=== PATIENT | male | born 1930 | race Caucasian/White ===

== ENCOUNTER 2021-04-17 09:06 | Outpatient (CLI) | payer MEDICARE, BC ==
[~2021-04-17] VITALS: Ht 172.7 cm; Wt 72.7 kg
[2021-04-17] VITALS (8 sets, daily range): BP systolic 89–153; BP diastolic 34–58
[2021-04-17] MEDS ORDERED: regadenoson 0.4mg/5ml syringe IV ONE ×2 (10:00→10:10)
[2021-04-17] MEDS ORDERED: nitroGLYCERIN 0.4mg SUBLingual tab SL PRN (10:00)
[2021-04-17] MEDS ORDERED: metoprolol tartrate 1mg/ml inj IV PRN (10:00)
[2021-04-17] MEDS ORDERED: aminophylline 250mg/10ml inj. IV PRN (10:00)
== END 2021-04-17 23:59 | disposition home or self-care (01) ==
LOC: RAD 09:06
PROVIDERS: ATTEND Internal Medicine Cardiovascular Disease
DX: R06.00 Dyspnea, unspecified (principal); R94.31 Abnormal electrocardiogram [ECG] [EKG]
CPT/HCPCS: 78452; 93017; A9500; J0280; J2785